=== PATIENT | male | born 1960 | race Caucasian/White ===

== ENCOUNTER → 2016-06-13 | Outpatient (CLI) | payer MEDICAID ==
--- NOTE | 2016-06-13 12:11 | RAD ---
HISTORY: Right shoulder pain, nontraumatic Study: Right shoulder three views Comparison: None Findings: The clavicle is intact. AC joint degenerative joint disease is present. There is inferior a acromial and distal clavicular spurring which could predispose the patient to impingement. The scapula, courtney ohumeral joint, proximal humerus, and right upper ribs are intact. The glenohumeral articulation is normal in its appearance. No acute cortical disruption or dislocation can be identified. The visu alized portions of the scapula are unremarkable. In addition, the visualized portions of the left h emithorax appear normal. IMPRESSION: 1. AC joint degenerative joint disease with inferior a acromial and clavicular spurring which could predispose the patient to impingement. Reported By:
--- NOTE | 2016-06-13 12:17 | RAD ---
HISTORY: Left shoulder pain Study: Left shoulder three view Comparison: None Findings: The clavicle is intact. There is significant AC joint degenerative joint disease with inferior clavi cular and acromial spurring which could predispose the patient to impingement The glenohumeral lilia culation is normal in its appearance. No acute cortical disruption or dislocation can be identified . The visualized portions of the scapula are unremarkable. In addition, the visualized portions of the left hemithorax appear normal. IMPRESSION: AC joint degenerative joint disease with inferior clavicular and acromial spurring which could pr edispose the patient to impingement Reported By:
--- NOTE | 2016-06-13 12:18 | RAD ---
HISTORY: COPD Study: Chest two views Comparison: None Findings: The trachea is midline. The cardiac silhouette is upper limits normal in size. No congestive heart failure is noted.. The lungs are clear without focal infiltrate or effusion. The bony thorax is un remarkable. IMPRESSION: 1. No acute cardiopulmonary disease. Reported By:
--- NOTE | 2016-06-13 12:20 | RAD ---
HISTORY: Low back pain Study: Lumbar spine three view Comparison: None Findings: The alignment is normal. The vertebral bodies are of average height. The disc spaces are preserved. The pedicles are intact. The SI joints are normal. Minimal spondylosis is present. IMPRESSION: Minimal spondylosis Reported By:
== END ==
LOC: RAD 11:28
PROVIDERS: ATTEND Nurse Practitioner Family
DX: M54.5 Low back pain (principal); Z87.09 Personal history of other diseases of the respiratory system; M19.011 Primary osteoarthritis, right shoulder; M19.012 Primary osteoarthritis, left shoulder; M47.817 Spondylosis without myelopathy or radiculopathy, lumbosacral region
CPT/HCPCS: 71020; 72100; 73030

== ENCOUNTER 2016-11-10 16:02 | Emergency (ER) | payer MEDICAID ==
[2016-11-10 16:11] VITALS: BP 105/63; BMI 32.5
--- NOTE | 2016-11-10 16:49 | DR.GENAD ---
HPI - PCP Primary Care Physician: NOEMÍ - HPI Comment HPI Comment: PATIENT HAVE FELT WEAK AND ANOREXIC FOR ONE MONTH. HE IS COUGHING, NON PRODUCTIVE ABD WAS RUNNING FEVER BUT NOT CURRENTLY. HE IS HAVING DIARRHEA STOOL FOR FEW WEEKS. TWO EPISODES TODAY. JUST DRAIN OF ENERGY. HE IS ANORESIC. - Complaint/Symptoms Chief Complaint Doctors Comments: GENERALIZE WEAKNESS, COUGH AND DIARRHEA. Chief Complaint:: SICK. FEEL CONGESTED WITH DRY COUGH. JUST FEEL WEAK Self Treatment fo Chief Complaint: PATIENT STATED "I WENT TO [facility]OSPITAL [facility]ST [place] THEY SENT ME TO [place].THE DOCTOR TOLD ME I HAD PNUEMONIA. I CHECKED OUT BECAUSE OF THE STORM." I HAVE BEEN NAUSEATED, NO APPETITE - Nurses notes reviewed Nurses Notes Review: Yes - Source History Provided: Patient - Mode of Arrival Mode of Arrival: Ambulatory - Timing Onset of Chief Complaint: 11/03/16 Came on: Suddenly - Duration Duration: Constant Duration: Days - Severity Severity: Moderate PMH - PMH Past Medical History: Yes Past Medical History: Asthma, COPD, Coronary Artery Disease, Depression, Diabetes, Hypertension Past Surgical History: Yes Surgical History: Other Past Surgical History Comment: HERNIA - Family History History of Family Medical Conditions: Yes Family Medical History: Diabetes Mellitus, Cancer, [place], Hypertension - Social History Does patient currently use any type of tobacco product: Yes Have you used tobacco products in the last 12 months: Yes Type of Tobacco Use: Cigarettes How many years tobacco product used: 40 Does any household member use tobacco: No Alcohol Use: None Do you use any recreational Drugs:: No Lives With: Alone Lives Where: Home - infectious screening In the last 2 months have you had wt loss of >10#?: NO Have you had fever, night sweats or hemotysis?: No Have you traveled outside the country in the last 6 months?: No Isolation: Standard ROS - Review of Systems Constitutional: Fever, Malaise, Weakness, Fatigue, Loss of Appetite. negative: Chills, Diaphoresis Eyes: No Symptoms Reported. negative: Eye Pain, Discharge ENTM: Throat Pain. negative: Ear Pain, Nose Discharge, Nose Congestion Respiratoy: Non-Productive Cough, Short of Breath, Wheezing. negative: Productive Cough, Hemoptysis Cardiovascular: No Symptoms Reported Gastrointestinal/Abdominal: Abdominal Pain, Diarrhea Genitourinary: No Symptoms Reported. negative: Dysuria, Frequency, Hematuria Neurological: Weakness, Dizziness Musculoskeletal: Muscle Pain Integumentary: No Symptoms Reported Hematologic/Lymphatic: No Symptoms Reported Endocrine: No Symptoms Reported All Other Systems: Reviewed and Negative PE - Vital Signs Vitals: Temperature 98.3 F Pulse Rate 70 Respiratory Rate 22 Blood Pressure 105/63 O2 Sat by Pulse Oximetry 95 - General Limitations: No Limitations General Appearance: Alert - Head Head Exam: Normal Inspection - Eyes Eye exam: Normal Appearance - ENT ENT Exam: Normal External Ear Exam External Ear Exam: Normal External Inspection TM/Canal Exam: Bilateral Normal Nose Exam: Normal Nose Exam Mouth Exam: Normal Inspection Throat Exam: Normal Inspection - Neck Neck Exam: Normal Inspection - Chest Chest Inspection: Symmetric Chest Wall Rise - Respiratory Respiratory Exam: Normal Lung Sounds Bilat Respiratory Exam: Bilateral Clear to Auscultation - Cardiovascular Cardiovascular Exam: Regular Rate, Normal Rhythm, Normal Heart Sounds - Abdominal Exam Abdominal Exam: Normal Bowel Sounds, Soft, Tenderness Abdominal Tenderness: Diffuse, Moderate - Extremities Extremities Exam: Normal Inspection - Back Back Exam: Normal Inspection - Neurologic Neurological Exam: Alert, Oriented X3 - Psychiatric Psychiatric Exam: Normal Affect, Normal Mood - Skin Skin Exam: Normal Color ROR - Labs Reviewed Result Diagrams: 11/10/16 17:06 11/10/16 17:06 Laboratory: WBC 8.3 X10^3/uL (3.6-10.0) 11/10/16 17:06 RBC 4.05 X10^6/uL (4.7-6.0) L 11/10/16 17:06 Hgb 11.6 g/dL (13.5-18.0) L 11/10/16 17:06 Hct 34.5 % (42.0-54.0) L 11/10/16 17:06 MCV 85.3 fL (80.0-100.0) 11/10/16 17:06 MCH 28.7 pg (27.0-34.0) 11/10/16 17:06 MCHC 33.7 g/dL (33.0-35.0) 11/10/16 17:06 RDW 15.9 % (11.6-16.5) 11/10/16 17:06 Plt Count 376 X10^3/uL (150.0-450.0) 11/10/16 17:06 MPV 9.1 fL (7.4-11.0) 11/10/16 17:06 Neut % 52.5 % (42.0-75.0) 11/10/16 17:06 Lymph % 26.4 % (21.0-51.0) 11/10/16 17:06 [place] % 13.7 % (0.0-13.0) H 11/10/16 17:06 Eos % 6.1 % (0.9-2.9) H 11/10/16 17:06 Baso % 1.3 % (0.2-1.0) H 11/10/16 17:06 Neut # 4.4 x10^3/uL (2.2-4.8) 11/10/16 17:06 Lymph # 2.2 X10^3/uL (1.3-2.9) 11/10/16 17:06 [place] # 1.1 x10^3/uL (0.3-0.8) H 11/10/16 17:06 Eos # 0.5 x10^3/uL (0.0-0.2) H 11/10/16 17:06 Baso # 0.1 X10^3/uL (0.0-0.1) 11/10/16 17:06 Absolute Nucleated RBC 0.0 /100WBC 11/10/16 17:06 Sodium 138 mmol/L (136-145) 11/10/16 17:06 Corrected Sodium TNP 11/10/16 17:06 Potassium 5.1 mmol/L (3.5-5.1) 11/10/16 17:06 Chloride 100 mmol/L (98-107) 11/10/16 17:06 Carbon Dioxide 33.4 mmol/L (21-32) H 11/10/16 17:06 BUN 42 mg/dL (7-18) H 11/10/16 17:06 Creatinine 2.74 mg/dL (0.70-1.30) H 11/10/16 17:06 Est GFR (MDRD) Af Amer 31 (>60) L 11/10/16 17:06 Est GFR (MDRD) Non-Af 26 (>60) L 11/10/16 17:06 Glucose 103 mg/dL (65-99) H 11/10/16 17:06 Calcium 9.5 mg/dL (8.5-10.1) 11/10/16 17:06 Corrected Calcium 10.4 mg/dL (8.5-10.1) H 11/10/16 17:06 Total Bilirubin 0.30 mg/dL (0.2-1.0) 11/10/16 17:06 AST 29 Units/L (15-37) 11/10/16 17:06 ALT 39 Units/L (12-78) 11/10/16 17:06 Alkaline Phosphatase 70 Units/L (46-116) 11/10/16 17:06 Creatine Kinase 100 Units/L (39-308) 11/10/16 17:06 CK-MB (CK-2) 1.6 ng/mL (0-4.0) 11/10/16 17:06 CK/CKMB % Calc 1.6 % (<4) 11/10/16 17:06 Troponin I 0.04 ng/mL (0-1.5) 11/10/16 17:06 B-Natriuretic Peptide 243 pg/mL (0-79) H 11/10/16 17:06 Total Protein 7.0 g/dL (6.4-8.2) 11/10/16 17:06 Albumin 2.9 g/dL (3.4-5.0) L 11/10/16 17:06 Globulin 4.1 g/dL (2.5-4.5) 11/10/16 17:06 Albumin/Globulin Ratio 0.7 Ratio (1.1-2.1) L 11/10/16 17:06 Influenza A (H1N1) PCR Not detected (NOT DETECT) 11/10/16 18:00 Influenza Type A (PCR) Negative (NEGATIVE) 11/10/16 18:00 Influenza Type B (PCR) Negative (NEGATIVE) 11/10/16 18:00 - Diagnosis Discharge Problem: Generalized weakness, Anorexia, Abnormal serum creatinine level Diarrhea Qualifiers: Diarrhea type: unspecified type Qualified Code(s): R19.7 - Diarrhea, unspecified - Discharge Plan Disposition: AGAINST MEDICAL ADVICE Condition: Stable - Follow ups/Referrals Follow ups/Referrals: VINCE DUNAWAY [Primary Care Provider] - 3 days - Instructions
[2016-11-10 17:20] LABS: BASOPHILS # (AUTO) 0.1 X10^3/uL (0.0-0.1); BASOPHILS % (AUTO) 1.3 % (0.2-1.0); EOSINOPHILS # (AUTO) 0.5 x10^3/uL (0.0-0.2); EOSINOPHILS % (AUTO) 6.1 % (0.9-2.9); HEMATOCRIT 34.5 % (42.0-54.0); HEMOGLOBIN 11.6 g/dL (13.5-18.0); LYMPHOCYTES # (AUTO) 2.2 X10^3/uL (1.3-2.9); LYMPHOCYTES % (AUTO) 26.4 % (21.0-51.0); MEAN CORPUSCULAR HEMOGLOBIN 28.7 pg (27.0-34.0); MEAN CORPUSCULAR HGB CONC 33.7 g/dL (33.0-35.0); MEAN CORPUSCULAR VOLUME 85.3 fL (80.0-100.0); MEAN PLATELET VOLUME 9.1 fL (7.4-11.0); MONOCYTES # (AUTO) 1.1 x10^3/uL (0.3-0.8); MONOCYTES % (AUTO) 13.7 % (0.0-13.0); NEUTROPHILS # (AUTO) 4.4 x10^3/uL (2.2-4.8); NEUTROPHILS % (AUTO) 52.5 % (42.0-75.0); PLATELET COUNT 376 X10^3/uL (150.0-450.0); RED BLOOD COUNT 4.05 X10^6/uL (4.7-6.0); RED CELL DISTRIBUTION WIDTH 15.9 % (11.6-16.5); WHITE BLOOD COUNT 8.3 X10^3/uL (3.6-10.0)
--- NOTE | 2016-11-10 17:27 | RAD ---
HISTORY: Chest pain, weight loss Study: Single-view chest Comparison: June 13, 2016 Findings: The trachea is midline. The cardiac silhouette is stable. The lungs are clear without focal infiltr ate or effusion. The bony thorax is unremarkable. IMPRESSION: 1. No acute cardiopulmonary disease. Reported By:
[2016-11-10 17:44] LABS: B-TYPE NATRIURETIC PEPTIDE 243 pg/mL (0-79)
[2016-11-10 17:51] LABS: ALANINE AMINOTRANSFERASE 39 Units/L (12-78); ALBUMIN 2.9 g/dL (3.4-5.0); ALKALINE PHOSPHATASE 70 Units/L (46-116); ASPARTATE AMINO TRANSFERASE 29 Units/L (15-37); BLOOD UREA NITROGEN 42 mg/dL (7-18); CALCIUM 9.5 mg/dL (8.5-10.1); CARBON DIOXIDE 33.4 mmol/L (21-32); CHLORIDE 100 mmol/L (98-107); CKMB % 1.6 % (<4); COR CA(FOR HYPOALB) 10.4 mg/dL (8.5-10.1); CREATINE KINASE 100 Units/L (39-308); CREATINE KINASE MB 1.6 ng/mL (0-4.0); CREATININE 2.74 mg/dL (0.70-1.30); SODIUM 138 mmol/L (136-145); TROPONIN I 0.04 ng/mL (0-1.5); eGFR BLACK RACES 31 (>60); eGFR NON BLACK RACES 26 (>60)
== END 2016-11-10 19:07 | disposition left against medical advice (07) ==
LOC: ER 16:19
DX: R53.1 Weakness (principal); R63.0 Anorexia; R19.7 Diarrhea, unspecified; R79.89 Other specified abnormal findings of blood chemistry
CPT/HCPCS: 36415; 71010; 80053; 82550; 82553; 83880; 84484; 85025; 87040; 87502; 87503; 93005; 93010; 99283

== ENCOUNTER → 2017-05-16 | Outpatient (CLI) | payer MEDICAID ==
[2017-05-16 14:42] LABS: BASOPHILS # (AUTO) 0.2 X10^3/uL (0.0-0.1); BASOPHILS % (AUTO) 2.4 % (0.2-1.0); EOSINOPHILS # (AUTO) 0.6 x10^3/uL (0.0-0.2); EOSINOPHILS % (AUTO) 7.2 % (0.9-2.9); HEMATOCRIT 38.5 % (42.0-54.0); LYMPHOCYTES # (AUTO) 2.1 X10^3/uL (1.3-2.9); LYMPHOCYTES % (AUTO) 25.9 % (21.0-51.0); MEAN CORPUSCULAR HEMOGLOBIN 29.3 pg (27.0-34.0); MEAN CORPUSCULAR HGB CONC 33.9 g/dL (33.0-35.0); MEAN CORPUSCULAR VOLUME 86.5 fL (80.0-100.0); MEAN PLATELET VOLUME 9.3 fL (7.4-11.0); MONOCYTES # (AUTO) 0.7 x10^3/uL (0.3-0.8); MONOCYTES % (AUTO) 8.7 % (0.0-13.0); NEUTROPHILS # (AUTO) 4.5 x10^3/uL (2.2-4.8); NEUTROPHILS % (AUTO) 55.8 % (42.0-75.0); PLATELET COUNT 263 X10^3/uL (150.0-450.0); RED BLOOD COUNT 4.45 X10^6/uL (4.7-6.0); RED CELL DISTRIBUTION WIDTH 15.2 % (11.6-16.5)
[2017-05-16 14:58] LABS: ALANINE AMINOTRANSFERASE 23 Units/L (12-78); ALBUMIN 3.5 g/dL (3.4-5.0); ALKALINE PHOSPHATASE 89 Units/L (46-116); ASPARTATE AMINO TRANSFERASE 16 Units/L (15-37); BLOOD UREA NITROGEN 34 mg/dL (7-18); CALCIUM 8.1 mg/dL (8.5-10.1); CARBON DIOXIDE 30.1 mmol/L (21-32); CHLORIDE 100 mmol/L (98-107); CHOL/HDL RATIO 4.4 (0.0-5.0); CHOLESTEROL 182 mg/dL (0-200); CREATININE 3.22 mg/dL (0.70-1.30); HDL CHOLESTEROL 41 mg/dL (40-60); SODIUM 138 mmol/L (136-145); TOTAL PROTEIN 7.4 g/dL (6.4-8.2); TRIGLYCERIDES 169 mg/dL (0-150); eGFR BLACK RACES 26 (>60); eGFR NON BLACK RACES 21 (>60)
[2017-05-16 15:22] LABS: TOTAL PSA 0.57 ng/mL (0.13-4.0)
== END ==
LOC: LAB 14:06
PROVIDERS: ATTEND Nurse Practitioner Family
DX: I10 Essential (primary) hypertension (principal); E78.2 Mixed hyperlipidemia; R35.8 Other polyuria
CPT/HCPCS: 36415; 80053; 80061; 84153; 85025